=== PATIENT | male | born 1985 | race African-American/Black ===

== ENCOUNTER 2016-04-26 16:21 | Emergency (ER) | payer MEDICAID ==
[~2016-04-26] VITALS: Ht 185.4 cm; Wt 70.0 kg
[2016-04-26 21:25] VITALS: BP 123/85
== END 2016-04-26 21:30 | disposition home or self-care (01) ==
LOC: ER 18:30
DX: S91.312A Laceration without foreign body, left foot, initial encounter (principal); F17.210 Nicotine dependence, cigarettes, uncomplicated; F12.10 Cannabis abuse, uncomplicated; J45.909 Unspecified asthma, uncomplicated; Z20.6 Contact with and (suspected) exposure to human immunodeficiency virus [HIV]; G43.909 Migraine, unspecified, not intractable, without status migrainosus; W25.XXXA Contact with sharp glass, initial encounter; Y93.89 Activity, other specified; Y92.89 Other specified places as the place of occurrence of the external cause
CPT/HCPCS: 73630; 99284; Z7610

== ENCOUNTER 2016-08-04 18:21 | Emergency (ER) | payer MEDICAID ==
[~2016-08-04] VITALS: Ht 160 cm; Wt 51.0 kg
[2016-08-04] MEDS ORDERED: ALBUTEROL (0.083%) 2.5MG/3ML NEB HHN STA (23:10)
[2016-08-04] MEDS ORDERED: IPRATROPIUM BROMIDE (0.02%) 0.5MG/2.5ML NEB HHN STA (23:10)
[2016-08-04] MEDS ORDERED: PREDNISONE 20MG TABLET PO STA (23:10)
[2016-08-05] MEDS ORDERED: ALBUTEROL (0.083%) 2.5MG/3ML NEB HHN STA (04:34)
[2016-08-05 05:00] VITALS: BP 110/56
== END 2016-08-05 05:00 | disposition home or self-care (01) ==
LOC: ER 18:21
DX: J45.901 Unspecified asthma with (acute) exacerbation (principal); R05 Cough; G43.909 Migraine, unspecified, not intractable, without status migrainosus; F17.210 Nicotine dependence, cigarettes, uncomplicated; F12.10 Cannabis abuse, uncomplicated; Z20.6 Contact with and (suspected) exposure to human immunodeficiency virus [HIV]; Z91.018 Allergy to other foods; Z91.013 Allergy to seafood
CPT/HCPCS: 71010; 94640; 99284; J7512; J7611; Z7610

== ENCOUNTER 2016-12-25 02:32 | Emergency (ER) | payer MEDICAID ==
[~2016-12-25] VITALS: Ht 185.4 cm; Wt 68.0 kg
[2016-12-25 02:41] VITALS: BP 144/69
== END 2016-12-25 03:33 | disposition left against medical advice (07) ==
LOC: ER 03:07
DX: Z53.21 Procedure and treatment not carried out due to patient leaving prior to being seen by health care provider (principal)

== ENCOUNTER 2017-01-03 02:22 | Emergency (ER) | payer MEDICAID ==
[~2017-01-03] VITALS: Ht 185.4 cm; Wt 68.0 kg
[2017-01-03] MEDS ORDERED: HYDROCODONE/ACETAMINOPHEN 5/325MG TABLET PO ONE (03:45)
[2017-01-03 03:54] VITALS: BP 136/80
== END 2017-01-03 03:57 | disposition home or self-care (01) ==
LOC: ER 02:22
DX: K08.89 Other specified disorders of teeth and supporting structures (principal); J45.909 Unspecified asthma, uncomplicated; F17.200 Nicotine dependence, unspecified, uncomplicated
CPT/HCPCS: 99283

== ENCOUNTER 2017-10-09 08:53 | Emergency (ER) | payer MEDICAID ==
[~2017-10-09] VITALS: Ht 175.3 cm; Wt 75.0 kg
[2017-10-09] MEDS ORDERED: IBUPROFEN 600MG TABLET PO ONE (09:45)
[2017-10-09 11:34] VITALS: BP 123/67
== END 2017-10-09 11:37 | disposition home or self-care (01) ==
LOC: ER 08:53
DX: R07.89 Other chest pain (principal); Y04.2XXA Assault by strike against or bumped into by another person, initial encounter; Y07.03 Male partner, perpetrator of maltreatment and neglect; Y93.89 Activity, other specified; Y92.89 Other specified places as the place of occurrence of the external cause; F12.90 Cannabis use, unspecified, uncomplicated
CPT/HCPCS: 71045; 93005; 99284

== ENCOUNTER 2019-04-29 12:23 | Emergency (ER) | payer MEDICAID ==
[~2019-04-29] VITALS: Ht 182.9 cm; Wt 61.0 kg
[2019-04-29] MEDS ORDERED: IPRATROPIUM BROMIDE (0.02%) 0.5MG/2.5ML NEB HHN STA (12:59)
[2019-04-29] MEDS ORDERED: PREDNISONE 20MG TABLET PO STA (12:59)
[2019-04-29] MEDS ORDERED: ALBUTEROL (0.083%) 2.5MG/3ML NEB HHN STA (12:59)
[2019-04-29 13:09] VITALS: BP 125/73
== END 2019-04-29 15:16 | disposition left against medical advice (07) ==
LOC: ER 12:37
DX: J45.901 Unspecified asthma with (acute) exacerbation (principal)
CPT/HCPCS: 71045; 94640; 99283; J7512; Z7610

== ENCOUNTER 2019-06-08 15:04 | Emergency (ER) | payer MEDICAID ==
[~2019-06-08] VITALS: Ht 175.3 cm; Wt 80.0 kg
[2019-06-08] MEDS ORDERED: PREDNISONE 20MG TABLET PO STA (15:16)
[2019-06-08] MEDS ORDERED: ALBUTEROL (0.083%) 2.5MG/3ML NEB HHN STA ×2 (15:16→16:55)
[2019-06-08 17:15] VITALS: BP 119/47
== END 2019-06-08 17:42 | disposition home or self-care (01) ==
LOC: ER 15:11
DX: J45.901 Unspecified asthma with (acute) exacerbation (principal); F12.10 Cannabis abuse, uncomplicated; G43.909 Migraine, unspecified, not intractable, without status migrainosus
CPT/HCPCS: 94640; 99284; J7512; Z7610

== ENCOUNTER 2024-03-29 12:25 | Emergency (ER) | payer MEDICAID ==
[~2024-03-29] VITALS: Ht 185.4 cm; Wt 63.0 kg
[2024-03-29 12:27] VITALS: O2SAT 97
[2024-03-29 12:32] VITALS: BP 130/57; TEMP 36.6
[2024-03-29 13:01] VITALS: PULSE 80; RESP 18; O2SAT 96
[2024-03-29] MEDS: ALBUTEROL (0.083%) 2.5MG/3ML NEB HHN NR (13:01)
[2024-03-29] MEDS: DEXAMETHASONE 4MG/ML 1ML VIAL IM ONE (13:01)
[2024-03-29] MEDS: IPRATROPIUM/ALBUTEROL 0.5-3(2.5)MG/3ML NEB HHN ONE (13:01)
== END 2024-03-29 14:00 | disposition home or self-care (01) ==
LOC: ER 12:25
DX: J45.901 Unspecified asthma with (acute) exacerbation (principal); G43.809 Other migraine, not intractable, without status migrainosus; F12.90 Cannabis use, unspecified, uncomplicated
CPT/HCPCS: 94640; 94664; 94070; 96372; 99291; J1100; Z7610 ×4; 94799